=== PATIENT | female | born 1995 | race Caucasian/White ===

== ENCOUNTER 2017-06-02 12:04 | Emergency (ER) | payer OTHER ==
--- NOTE | 2017-06-02 12:11 | ED Physician Chart ---
ED Chief Complaint/HPI - Patient Information Date Seen:: 06/02/17 Time Seen:: 12:51 Chief Complaint:: RASH/ OVOID PLACK ON BACK X3 WKS History of Present Illness:: THIS 21 YEAR OLD FEMALE DEVELOPED A PYRITIC RASH IN THE LT FLANK 3 WKS AGO. THE RASH WAS NOT ACCOMPANIED BY ANY FEVER, SWEATING, NAUSEA OR VOMITING. ED Review of Systems - Review of Systems General/Constitutional: No fever, No chills, No weight loss, No weakness, No diaphoresis, No edema Skin: No bruising, Other ( PATIENT HAS A PLAQUE [id number] LIKE LESION OF APPROXIMATELY 2 X 3 CM) Head: No headache, No light-headedness Eyes: No loss of vision, No pain, No diplopia ENT: No earache, No nasal drainage, No sore throat, No tinnitus Neck: No neck pain, No swelling, No thyromegaly, No stiffness, No mass noted Cardio Vascular: No chest pain, No edema Pulmonary: No SOB, No cough, No sputum, No wheezing GI: No nausea, No vomiting, No diarrhea, No pain, No melena, No hematochezia, No constipation, No hematemesis G/U: No dysuria, No frequency, No hematuria, No nacturia Deep Tissue Massage Therapist: No vaginal discharge, No abnormal vaginal bleed Musculoskeletal: No bone or joint pain, No back pain, No muscle pain Endocrine: No polydipsia Psychiatric: Prior psych history, No depression, No anxiety, No suicidal ideation, No homicidal ideation, No auditory hallucination, No visual hallucination Hematopoietic: No bruising, No lymphadenopathy Allergic/Immuno: No urticaria, No angioedema Neurological: No syncope, No focal symptoms, No weakness, No paresthesia, No headache, No seizure, No dizziness, No confusion, No vertigo ED Past Medical History - Past Medical History Past Medical History: No significant medical hx ED Physical Exam - Physical Examination General/Constitutional: Awake, Alert, No distress, Non-toxic appearing Head: Atraumatic Eyes: Lids, conjuctiva normal, PERRL, EOMI Skin: No ecchymosis, Well hydrated, No lymphadenopathy Other Skin comments:: THERE IS AN ISOLATED OVOID PACK IN THE ANTERIOR AXILLARY LINE ON THE LEFT THAT MEASURES APPROXIMATELY 23 cm. Internal portion of the plaque with a SCALY RIM. ENMT: External ears, nose nl, Lips, teeth, gums nl Neck: Nontender, Full ROM w/o pain, No nuchal rigidity, No bruit, No mass, No stridor Respiratory: Nl effort/Exclusion, Clear to Auscultation, No Wheeze/Rhonchi/Rales Cardio Vascular: No murmur, gallop, rubs, NL S1 S2 Other Cardio Vascular comments:: THE PULSES IN ALL FOUR EXTREMITIES. GI: No tenderness/rebounding/guarding, No organomegaly, No hernia, Normal BS's, Nondistended, No mass/bruits, No McBurney tenderness : No CVA tenderness Extremities: No tenderness or effusion, Full ROM, normal strength in all extremities, No edema Neuro/Psych: Alert/oriented, DTR's symmetric, Normal sensory exam, Normal motor strength, Judgement/insight normal, Mood normal, Normal gait, No focal deficits ED Labs/Radiology/EKG Results - Lab Results Results: NO LABORATORY OR RADIOLOGY TESTS INDICATED. ED Assessment - Assessment General Assessment: CASE SUMMARY: THIS 21 YEAR OLD FEMALE HAS HAD AN OVOID PLACK IN HER LT FLANK REFION FOR THE PAST 3 WKS. IT IS NON-PAINFUL AND SHE HAS HAD NO FEVER, CHILLS OR SWEATS. SHE NOTES SHE HAS OFFERS THAT SHE HAS STARTEF GOING TO THE GYM [facility] AND THINKS SHE MAY HAVE PICKED U SOMETHING FROM A BENCH OR A PIECE OF EQUIPMENT. THE LESTION IS WELL DEFINED WITH [facility] SPAIRING IN THE CENTER. MDM DDX ISOLATED [id number] APPEARANCEORIATIC PLACK based on physical APPREARANCE. NOT SQUAMOUS cell CARCINOMA BASED ON TIME IT TOOK THE LESION TO APPEAR. ED Septic Shock - . Is Septic Shock (SBP<90, OR Lactate>4 mmol\L) present?: No ED Reassessment (Disposition) - Reassessment Reassessment Condition:: Unchanged - Diagnosis Diagnosis:: TENIA GARIMA Use the Lotrimin twice a day and apply to the rash for a total of 7 days. Follow up with your primary care doctor in 7-10 days to reevaluate the treatment plan. Return to the ER sooner if there is any significant worsening of the rash. ED Discharge Plan - Patient Disposition Admit/Discharge/Transfer: PT DISCHARGED HOME Condition at Disposition: Stable Instructions: Pityriasis Rosea, Jock Itch, [id number] Accepting Physician: Davy Santoyo [Provisional Staff] -
== END 2017-06-02 13:55 | disposition home or self-care (01) ==
LOC: ER 12:04
DX: B35.8 Other dermatophytoses (principal)